=== PATIENT | male | born 1950 | race Caucasian/White ===

== ENCOUNTER 2018-05-27 18:18 | Inpatient (IN) | payer MEDICARE, OTHER ==
[2018-05-27] VITALS (19 sets, daily range): BP systolic 113–248; BP diastolic 76–172
[~2018-05-27] VITALS: Ht 175.3 cm; Wt 63.0 kg
--- NOTE | 2018-05-27 18:20 | NUR ---
BIBRA FROM HOME C/O SOB X 10 HOURS, MISSED DIALYSIS TODAY, SPO2 94% IN ROOM AIR, NO SOB NOTED AT THIS TIME. BP ELEVATED.
[2018-05-27] MEDS ORDERED: ALBUTEROL FS 2.5 MG/3 ML VIAL.NEB ONE (19:14)
[2018-05-27] MEDS ORDERED: IPRATROPIUM NEB FS 0.5 MG/2.5 ML AMPUL.NEB ONE (19:14)
--- NOTE | 2018-05-27 19:16 | NUR ---
PIV ON LEFT AC G20, PATIENT ON O2 AT 2LPM VIA NC DUE TO PATIENT'S C/O BREATHING DISCOMFORT. O2 SAT 94% AT THIS TIME. PATIENT APPEARS TO BE RESTLESS AND ANXIOUS.
--- NOTE | 2018-05-27 19:19 | NUR ---
RT AT BEDSIDE FOR HHN TX.
[2018-05-27 19:20] LABS: BASOPHILS # (AUTO) 0.1 /CMM (0.0-0.2); BASOPHILS % (AUTO) 0.9 % (0.0-2.0); EOSINOPHILS % (AUTO) 0.1 % (0.0-6.0); HEMATOCRIT 30 % (39-51); HEMOGLOBIN 9.4 g/dL (13.5-17.5); LYMPHOCYTES # (AUTO) 2.5 /CMM (0.8-4.8); LYMPHOCYTES % (AUTO) 19.6 % (20.0-44.0); MEAN CORPUSCULAR HGB CONC 31 g/dl (31.0-36.0); MEAN CORPUSCULAR VOLUME 87 fL (80-96); MONOCYTES # (AUTO) 0.8 /CMM (0.1-1.30); NEUTROPHILS # (AUTO) 9.4 /CMM (1.8-8.9); NEUTROPHILS % (AUTO) 73.4 % (43.0-81.0); PLATELET COUNT (AUTO) 237 /CMM (150-450); RED BLOOD CELL COUNT(AUTO) 3.42 MIL/uL (4.5-6.0); WHITE BLOOD COUNT (AUTO) 12.9 K/uL (4.3-11.0)
--- NOTE | 2018-05-27 19:26 | NUR ---
PATTERN MOLDER AT BEDSIDE FOR CXR.
[2018-05-27 19:30] LABS: CALCIUM, SERUM 7.8 mg/dL (8.5-10.1); POTASSIUM 4.9 mmol/L (3.5-5.1)
[2018-05-27] MEDS ORDERED: IPRATROPIUM NEB FS 0.5 MG/2.5 ML AMPUL.NEB NEB ONE (19:30)
[2018-05-27] MEDS ORDERED: ALBUTEROL FS 2.5 MG/3 ML VIAL.NEB NEB ONE (19:30)
[2018-05-27 19:31] LABS: CREATININE 7.5 mg/dL (0.6-1.3)
--- NOTE | 2018-05-27 19:32 | NUR ---
PT ANXIOUS, RESTLESS, KEEPS TRYING TO GET OUT OF BED AND REFUSING HHN TX. COMFORT MEASURES DONE, PLACE PT BACK ON HHN TX. ER MADE AWARE.
--- NOTE | 2018-05-27 19:40 | NUR ---
JERRY RIOS AT BEDSIDE TO RE-EVAL PT.
--- NOTE | 2018-05-27 19:44 | NUR ---
REPORT GIVEN TO QUYEN FOR AKILAH.
[2018-05-27 19:45] LABS: ALBUMIN 2.9 g/dL (3.4-5.0); BILIRUBIN,TOTAL 0.4 mg/dL (0.2-1.0)
--- NOTE | 2018-05-27 19:47 | NUR ---
ER AT BEDSIDE TO RE-EVAL PT WITH ORDERS TO PLACE PT ON BIPAP, RT PAGED.
[2018-05-27 19:52] LABS: TOTAL PROTEIN, SERUM 7.7 g/dL (6.4-8.2)
--- NOTE | 2018-05-27 19:54 | NUR ---
RT AT BEDSIDE TO PLACE PT ON BIPAP.
--- NOTE | 2018-05-27 19:56 | NUR ---
BIPAP SETTING 15/5, RATE - 12, FIO2 - 50%. WILL CONTINUE TO MONITOR PT CLOSELY.
--- NOTE | 2018-05-27 20:10 | NUR ---
RT PT PLACED ON BIPAP PER ORDERS WITH NOTED SETTING FOR SOB AND IWB. PT TOLERATING SETTING WELL AND SAYS HE FEEL MUCH BETTER. BIPAP TO RED OUTLET, ALARMS SET AUDIBLE, MARYSOL ROMERO AT HOB. WILL CONTINUE TO MONITOR. Addendum: 05/27/18 at 2012 by CLARISSE BENITEZ RT Amended: Links added.
[2018-05-27] MEDS ORDERED: FUROSEMIDE 40 MG/4 ML VIAL ONE (20:14)
[2018-05-27] MEDS ORDERED: hydrALAZINE HCL IV 20 MG VIAL ONE (20:15)
--- NOTE | 2018-05-27 20:29 | NUR ---
PT TOLERATING CURRENT BIPAP SETTING AT THIS TIME.
[2018-05-27] MEDS ORDERED: FUROSEMIDE 40 MG/4 ML VIAL IV ONE (20:30)
[2018-05-27] MEDS ORDERED: hydrALAZINE HCL IV 20 MG VIAL IV ONE (20:30)
--- NOTE | 2018-05-27 20:30 | NUR ---
REPORT GIVEN TO LISA RUFFIN FOR AKILAH.
--- NOTE | 2018-05-27 20:38 | NUR ---
PT BECAME ANXIOUS, KEEPS TRYING TO TAKE OFF BIPAP MASK. ER MD AT BEDSIDE TO RE-EVAL PT WITH ORDERS RECEIVED. WILL CARRY OUT ORDERS.
[2018-05-27] MEDS ORDERED: LORAZEPAM INJ 2 MG/ML VIAL ONE (20:49)
--- NOTE | 2018-05-27 20:53 | NUR ---
RT AT BEDSIDE FOR ABG.
[2018-05-27] MEDS ORDERED: LORAZEPAM INJ 2 MG/ML VIAL IV ONE (21:00)
--- NOTE | 2018-05-27 21:00 | NUR ---
PT TOLERATING BIPAP AT THIS TIME.
--- NOTE | 2018-05-27 21:13 | NUR ---
RT ABG DRAWN. NO NEW ORDERS PER MD. ABG DID NOT CROSS OVER TO [facility]. ABG RESULTS IN PT CHART. RN AND MD AWARE. Addendum: 05/27/18 at 2115 by CLARISSE BENITEZ RT Amended: Links added.
--- NOTE | 2018-05-27 21:33 | NUR ---
ICU/SENIOR CLINICAL RESEARCH ASSOCIATE RECEIVED PT FROM ER WITH REPORT GIVEN PRIOR TO ADMISSION. PT'S BLOOD PRESSURE IS 249/150'S WITH PT HAVING PERIODS OF ANXIETY. CHARGE NURSE IS CALLING EXCHANGE TO GET ADMISSION ORDERS AND PRN ORDERS. CALL LIGHT WITHIN, PT IS ORT TO ROOM AND CALL LIGHT. HD NURSE TO COME AND DO HD TONIGHT DUE TO 2 DAYS WITH NO HD.
--- NOTE | 2018-05-27 21:40 | NUR ---
ICU/CERTIFIED HISTOLOGIC TECHNICIAN RANDOM BLOOD SUGAR WAS 91.
[2018-05-27] MEDS ORDERED: LORAZEPAM INJ 2 MG/ML VIAL IV STA (21:45)
--- NOTE | 2018-05-27 21:53 | NUR ---
ICU/AIR AND WATER TESTER ATIVAN 1 MG WAS GIVEN, DUE TO PT BEING VERY RESTLESS AND HIGH BP. WILL CONTINUE TO MONITOR THIS PT AND HIS ANXIETY. CALL LIGHT WITHIN REACH.
--- NOTE | 2018-05-27 21:57 | NUR ---
ICU/SPEED READING TEACHER HD NURSE ARRIVED TO DO THE HD WHICH WAS MISSED TODAY. PT USUALLY HAS HD ON MW. FRIDAY HE GOT HD, HOWEVER ON FRIDAY HE ARRIVED,WAS NOT GIVEN DUE TO HIGH BP. HD CENTER SENT PT TO THE ER TO ADDRESS THE HIGH BP WHICH PT WAS ADMITTED.
[2018-05-27] MEDS ORDERED: MAGNESIUM HYDROXIDE 30 ML UDC PO PRN (22:00)
[2018-05-27] MEDS ORDERED: ONDANSETRON HCL/PF 4 MG/2 ML VIAL IVP PRN (22:00)
[2018-05-27] MEDS ORDERED: DEXTROSE 50%-WATER 50 ML DISP.SYRIN IV PRN (22:00)
[2018-05-27] MEDS ORDERED: ZOLPIDEM TARTRATE 5 MG TABLET PO PRN (22:00)
[2018-05-27] MEDS ORDERED: Z GUARD REMEDY 2 OZ OINT TP PRN (22:00)
[2018-05-27] MEDS ORDERED: HEPARIN SODIUM, PORCINE 5000 UNITS/1 ML VIAL SQ SCH (22:00)
[2018-05-27] MEDS ORDERED: NICARDIPINE IN NACL, ISO-OSM 200 ML IV PRN (22:00)
[2018-05-27] MEDS ORDERED: INSULIN REGULAR, HUMAN 100 UNIT/ML 3 ML VIAL SQ PRN (22:00)
[2018-05-27] MEDS ORDERED: ACETAMINOPHEN 325 MG TABLET PO PRN (22:00)
--- NOTE | 2018-05-27 22:00 | NUR ---
ICU/GRAPPLE SKIDDER OPERATOR JOHN JACKSON CAME TO SEE THE PT AND TO WRITE ORDERS. ALL ORDERS ARE NOTED AND CARRIED OUT.
--- NOTE | 2018-05-27 22:10 | NUR ---
ICU/CASEWORKER PROTECTIVE SERVICES PT'S HEART RATE IS ELEVATED AND RHYTHM IS UNUSUAL, ASKED JOHN JACKSON IF OK TO DO A STAT EKG. EKG WAS ORDERED AND CARRIED OUT. JOHN JACKSON GIVEN THE EKG, NO NEW ORDERS GIVEN AT THIS TIME POST EKG
[2018-05-27] MEDS: HYDROCODONE/APAP 5/325MG 1 EACH TABLET PO PRN (23:27)
[2018-05-27] MEDS: BLOOD SUGAR DIAGNOSTIC 1 EACH STRIP IN SCH (23:32)
--- NOTE | 2018-05-27 23:35 | NUR ---
ICU/BRANCH LENDING OFFICER PT COMPLAINED ABOUT LEG AND BACK PAIN. PT WAS GIVEN NORCO 1 TAB FOR THE PAIN WHICH IS RATED AT 7/10. IN ADDITION TO THIS THE MIDNIGHT BLOOD SUGAR WAS DONE WHICH IS 101. THERE IS NO COVERAGE FOR THIS. WILL CONTINUE TO MONITOR THIS PT'S SUGAR ORDERED BY MD AND PAIN TO THE LEGS HD RN SLOWED DOWN THE FLUID THAT IS BEING PULLED OFF.
[2018-05-28] VITALS (71 sets, daily range): BP systolic 112–175; BP diastolic 7–157
--- NOTE | 2018-05-28 03:12 | NUR ---
ICU/CAR CLEANING SUPERVISOR PT'S BLOOD PRESSURE IS SLOWLY COMING UP FROM POST HD WHEN THE BP HAD FALLEN TO 120'S TO 130'S. CALLED BIAS CUTTER JOHN JACKSON FOR PRN ORDERS. WILL CONTINUE TO MONITOR THIS PT.
[2018-05-28] MEDS: hydrALAZINE HCL IV 20 MG VIAL IV PRN ×2 (03:35→12:46)
--- NOTE | 2018-05-28 03:43 | NUR ---
ICU/WINDOW AIR CONDITIONER INSTALLER PT'S BLOOD PRESSURE HAD REACHED 174/116 WITH NO PRN, PRN ORDER WAS RECEIVED FOR APRESOLINE 10MG IVP FOR SBP GREATER THAN 160. THIS WAS GIVEN, WILL CONTINUE TO MONITOR PT'S BP. CALL LIGHT WITHIN REACH, NO ACUTE DISTRESS SEEN.
[2018-05-28] MEDS: BLOOD SUGAR DIAGNOSTIC 1 EACH STRIP IN SCH ×2 (05:55→11:22)
--- NOTE | 2018-05-28 06:31 | NUR ---
ICU/FOUNDRY PROCESS ENGINEER AM LABS WERE DONE, AM ACCU CHECK WAS DONE WHICH WAS 82. THIS WAS NOT COVERED. AWAIT FOR ANY ABNORMAL LABS.
[2018-05-28 06:49] LABS: CALCIUM, SERUM 8.1 mg/dL (8.5-10.1); CREATININE 6.2 mg/dL (0.6-1.3); MAGNESIUM 1.9 mg/dL (1.8-2.4); PHOSPHORUS 4.8 mg/dL (2.5-4.9); POTASSIUM 5.2 mmol/L (3.5-5.1)
[2018-05-28 07:30] LABS: BASOPHILS % (AUTO) 0.2 % (0.0-2.0); HEMATOCRIT 25 % (39-51); HEMOGLOBIN 8.1 g/dL (13.5-17.5); LYMPHOCYTES # (AUTO) 1.2 /CMM (0.8-4.8); LYMPHOCYTES % (AUTO) 11.5 % (20.0-44.0); MEAN CORPUSCULAR HGB CONC 32 g/dl (31.0-36.0); MEAN CORPUSCULAR VOLUME 86 fL (80-96); MONOCYTES # (AUTO) 0.7 /CMM (0.1-1.30); MONOCYTES % (AUTO) 6.6 % (2.0-12.0); NEUTROPHILS # (AUTO) 8.7 /CMM (1.8-8.9); NEUTROPHILS % (AUTO) 81.7 % (43.0-81.0); PLATELET COUNT (AUTO) 76 /CMM (150-450); RED BLOOD CELL COUNT(AUTO) 2.94 MIL/uL (4.5-6.0); WHITE BLOOD COUNT (AUTO) 10.7 K/uL (4.3-11.0)
--- NOTE | 2018-05-28 07:31 | NUR ---
PATIENT AWAKE A/OX4. ON BIPAP PER ORDERS AND TOLERATING WELL WITH NO NOTED SOB. RT AT BEDSIDE. PATIENT DENIES ANY COMPLAINTS AT THIS TIME. PRN MEDICATIONS FOR HTN THROUGHOUT THE NIGHT. PATIENT SAFETY, SKIN, ASPIRATION PRECAUTIONS IN PLACE AND WILL MONITOR
--- NOTE | 2018-05-28 07:33 | NUR ---
[facility] FAX # [phone] ATTN SHARI SENT REQUEST FOR MEDICAL RECORDS
--- NOTE | 2018-05-28 07:40 | NUR ---
RT NOTE: LATE ENTRY-ALERT PATIENT PLACED ON OXYGEN AT 4LPM VIA NASAL CANNULA. TOLERATING WELL OFF BIPAP. WILL CONTINUE TO MONITOR.
[2018-05-28 08:25] LABS: LYMPHOCYTES % (MANUAL) 13 % (16-48); MONOCYTES % (MANUAL) 9 % (0-11.0); NEUTROPHILS % (MANUAL) 78 (42-76)
[2018-05-28 08:58] LABS: THYROID STIMULATING HORMONE 5.393 uIU/mL (0.358-3.74)
[2018-05-28] MEDS: CARVEDILOL 3.125 MG TABLET PO SCH ×2 (09:15→20:54)
[2018-05-28] MEDS: ATORVASTATIN 10 MG TABLET PO SCH (09:15)
[2018-05-28 09:52] LABS: ABG BASE EXCESS -1.4 mmol/L; ABG OXYGEN SATURATION 98.2 % (92.0-98.5); ABG PCO2 27.6 mmHg (35.0-45.0); ABG PH 7.503 (7.350-7.450); ABG PO2 151.1 mmHg (75.0-100.0); AaDO2 73.6 mmHg; COHb 0.1 % (0.5-1.5); MetHb 0.8 % (0.0-1.5); O2Hb 97.3 % (94.0-97.0); SITE, ABG Left Radial; VENT MODE, BG NASAL CANNULA
[2018-05-28] MEDS ORDERED: VANCOMYCIN 500 MG in IV D5W 100 ML IV PRN (10:00)
--- NOTE | 2018-05-28 10:00 | NUR ---
DR SNOW AT BEDSIDE FOR EVAL
[2018-05-28] MEDS ORDERED: FEE PK DOSING 1 MIN EA MC ONE (10:02)
[2018-05-28] MEDS ORDERED: ALBUTEROL HALF STRENGTH 1.25 MG/3 ML VIAL.NEB NEB PRN (10:30)
[2018-05-28] MEDS ORDERED: IPRATROPIUM NEB FS 0.5 MG/2.5 ML AMPUL.NEB NEB PRN (10:30)
[2018-05-28] MEDS ORDERED: VANCOMYCIN 1 GM in IV D5W 250 ML IV ONE (11:00)
--- NOTE | 2018-05-28 11:01 | NUR ---
DR BEY AT BEDSIDE. PER MD TY TO DOWNGRADE TO TELE. UPDATED ON AM LABS. PER MD TY TO DC HEPARIN. PATIETN AMBULATED WITH PT WITHOUT OXYGEN AND SATURATED 97% NO SOB.
[2018-05-28] MEDS: PIPERACILLIN /TAZOBACTAM 2.25 G in IV D5W 50 ML IV SCH ×2 (12:09→20:54)
[2018-05-28] MEDS: HYDROCODONE/APAP 5/325MG 1 EACH TABLET PO PRN (14:43)
--- NOTE | 2018-05-28 15:13 | NUR ---
PER OK TO DC SLIDING SCALE AND ACCUCHECKS
--- NOTE | 2018-05-28 16:33 | NUR ---
CHEMISTRY DEPARTMENT CHAIR OPENING NOTES RECEIVED PATIENT IN STABLE CONDITION. IN NO APPARENT DISTRESS. BEDSIDE RAILS ARE UPX2. BED IS LOCKED AND LOWERED. CALL LIGHT IS WITHIN REACH. IV LINE IS INTACT AND PATENT. WILL CONTINUE TO MONITOR PATIENT.
--- NOTE | 2018-05-28 16:34 | NUR ---
CARE ENDORSED TO RN MARYAM FOR AKILAH. PATIENT TX TO ROOM 327-2 TELE
--- NOTE | 2018-05-28 18:41 | NUR ---
BOOK ILLUSTRATOR CLOSING NOTES PATIENT IS IN STABLE CONDITION. IN NO APPARENT DISTRESS. BEDSIDE RAILS ARE UPX2. BED IS LOCKED AND LOWERED. CALL LIGHT IS WITHIN REACH. IV LINE IS INTACT AND PATENT. ALL NEEDS WERE MET. WILL ENDORSE CARE TO TUGBOAT OPERATOR NURSE FOR AKILAH.
--- NOTE | 2018-05-28 20:10 | NUR ---
DISASTER RECOVERY MANAGER NOTE RECEIVED PT IN STABLE CONDITION A&O X4. NO SIGNS OF SOB OR DISTRESS. PT WITH GEOFFREY CATH DRESSING IN TACT WITH NO SIGNS OF BLEEDING NOTED. IV IN R WRIST #20 AND LAC #20 PATENT AND IN TACT.. PT WILL BE RECEIVING DIALYSIS TONIGHT AFTER 2100. SAFETY PRECAUTIONS IN PLACE: BED IN LOW, LOCKED POSITION, UPPER BED RAILS UP, AND CALL LIGHT WITHIN REACH. WILL CONT TO MONITOR.
[2018-05-29 00:30] VITALS: BP 142/86
[2018-05-29] MEDS: PIPERACILLIN /TAZOBACTAM 2.25 G in IV D5W 50 ML IV SCH ×2 (04:33→13:00)
--- NOTE | 2018-05-29 06:34 | NUR ---
INVISIBLE BRACES ORTHODONTIST NOTE PT IN STABLE CONDITION A&O X4. NO SIGNS OF SOB OR DISTRESS. PT WITH GEOFFREY CATH DRESSING IN TACT WITH NO SIGNS OF BLEEDING NOTED. IV IN R WRIST #20 AND LAC #20 PATENT AND IN TACT. SAFETY PRECAUTIONS IN PLACE: BED IN LOW, LOCKED POSITION, UPPER BED RAILS UP, AND CALL LIGHT WITHIN REACH. WILL CONT TO MONITOR AND ENDORSE TO NEXT SHIFT FOR AKILAH.
[2018-05-29 08:00] VITALS: BP 173/93
[2018-05-29 08:12] LABS: BASOPHILS # (AUTO) 0.1 /CMM (0.0-0.2); EOSINOPHILS % (AUTO) 0.5 % (0.0-6.0); HEMATOCRIT 24 % (39-51); HEMOGLOBIN 7.7 g/dL (13.5-17.5); LYMPHOCYTES # (AUTO) 1.8 /CMM (0.8-4.8); LYMPHOCYTES % (AUTO) 20.2 % (20.0-44.0); MEAN CORPUSCULAR HGB CONC 33 g/dl (31.0-36.0); MEAN CORPUSCULAR VOLUME 86 fL (80-96); MONOCYTES # (AUTO) 0.7 /CMM (0.1-1.30); MONOCYTES % (AUTO) 7.9 % (2.0-12.0); NEUTROPHILS # (AUTO) 6.4 /CMM (1.8-8.9); NEUTROPHILS % (AUTO) 70.4 % (43.0-81.0); PLATELET COUNT (AUTO) 76 /CMM (150-450); RED BLOOD CELL COUNT(AUTO) 2.74 MIL/uL (4.5-6.0); WHITE BLOOD COUNT (AUTO) 9.2 K/uL (4.3-11.0)
[2018-05-29 08:35] LABS: ALBUMIN 2.3 g/dL (3.4-5.0); BILIRUBIN,TOTAL 0.5 mg/dL (0.2-1.0); CALCIUM, SERUM 7.6 mg/dL (8.5-10.1); CREATININE 6.4 mg/dL (0.6-1.3); MAGNESIUM 1.8 mg/dL (1.8-2.4); PHOSPHORUS 4.8 mg/dL (2.5-4.9); TOTAL PROTEIN, SERUM 6.1 g/dL (6.4-8.2)
[2018-05-29 08:59] VITALS: BP 173/93
[2018-05-29] MEDS: CARVEDILOL 3.125 MG TABLET PO SCH (08:59)
[2018-05-29] MEDS: ATORVASTATIN 10 MG TABLET PO SCH (09:00)
[2018-05-29 09:08] LABS: LYMPHOCYTES % (MANUAL) 17 % (16-48); MONOCYTES % (MANUAL) 6 % (0-11.0); NEUTROPHILS % (MANUAL) 77 (42-76)
[2018-05-29] MEDS ORDERED: AMLO10TA4 PO (10:16)
[2018-05-29] MEDS ORDERED: FERR325T23 PO (10:16)
[2018-05-29] MEDS ORDERED: ATOR10TA PO (10:16)
[2018-05-29] MEDS ORDERED: CARV3.122 PO (10:16)
[2018-05-29] MEDS ORDERED: EPOETIN ALFA (10,000 UNIT) 10,000 UNIT/ML VIAL IV ONE (12:00)
[2018-05-29] MEDS ORDERED: SOD FERRIC GLUC 125 MG in IV NS 0.9% 100 ML IV SCH (14:00)
--- NOTE | 2018-05-29 14:00 | NUR ---
MS computer typesetter keyliner Note Patient awake, resting in bed. No acute distress noted, SOB or signs/symptoms of chest pain. Alert and oriented x 4; able to verbalize needs accordingly. Respirations even and unlabored on room air. Ambulates with steady gait. Peripheral IV access to the right wrist 20 gauge and left AC 20 gauge removed with catheter tips intact. No redness, swelling or bleeding of the sites noted. Skin warm and dry to touch. Patient refused overall skin assessment and discharge photos; educated about benefits and policy, refusing still. ID band removed. Personal belongings and clothing items accounted for, acknowledged via signature on belongings form. Discharge instructions and Exitcare provided to patient, emphasis on following up with [facility] dialysis outpatient. Patient verbalized understanding of instructions and acknowledged via signature on form. Copies placed in chart. Patient accompanied to lobby of hospital; left via taxi cab.
== END 2018-05-29 14:00 | disposition home or self-care (01) | DRG 280 ==
LOC: ER 18:24 → ICU 21:22 → TELE 05-28 15:57 → MED 05-29 08:54
PROVIDERS: ADMIT Nurse Practitioner Acute Care
PROC: 5A09457 Assistance with Respiratory Ventilation, 24-96 Consecutive Hours, Continuous Positive Airway Pressure (ICD-10-PCS; principal; 2018-05-27)
PROC: 5A1D70Z Performance of Urinary Filtration, Intermittent, Less than 6 Hours Per Day (ICD-10-PCS; 2018-05-27)
PROC: 5A1D70Z Performance of Urinary Filtration, Intermittent, Less than 6 Hours Per Day (ICD-10-PCS; 2018-05-28)
DX: I16.0 Hypertensive urgency (principal); J96.01 Acute respiratory failure with hypoxia; I21.A1 Myocardial infarction type 2; N18.6 End stage renal disease; I50.33 Acute on chronic diastolic (congestive) heart failure; E44.0 Moderate protein-calorie malnutrition; I13.2 Hypertensive heart and chronic kidney disease with heart failure and with stage 5 chronic kidney disease, or end stage renal disease; Z99.2 Dependence on renal dialysis; E83.51 Hypocalcemia; D50.9 Iron deficiency anemia, unspecified; D69.6 Thrombocytopenia, unspecified; E87.5 Hyperkalemia; F17.200 Nicotine dependence, unspecified, uncomplicated; D72.829 Elevated white blood cell count, unspecified; E88.09 Other disorders of plasma-protein metabolism, not elsewhere classified; Z68.20 Body mass index [BMI] 20.0-20.9, adult
CPT/HCPCS: 36415; 36600; 71045-TC; 80048-TC; 80053-TC; 80061-TC; 80076-TC; 82728-TC; 82803-TC; 82962-TC; 83540-TC; 83605-TC; 83735-TC; 83880; 84100-TC; 84439-TC; 84443-TC; 84484-TC; 85025-TC; 85730-TC; 87400; 90935-TC; 93307-TC; 99082-TC; G0378; J0360; J0885; J1644; J1815; J1940; J2060; J2543; J2916; J3370; J7030; J7050; J7060

== ENCOUNTER 2018-12-18 13:16 | Inpatient (IN) | payer MEDICARE, OTHER ==
[~2018-12-18] VITALS: Ht 165.1 cm; Wt 63.5 kg
[~2018-12-18 13:16] MED LIST: AMLO10TA4 PO; ATOR10TA PO; CARV3.122 PO; FERR325T23 PO
--- NOTE | 2018-12-18 13:38 | NUR ---
PT BIB RA FROM HOME FOR HIGH BLOOD PRESSURE, PT AAOX4, NOT IN RESPIRATORY DISTRESS, HOOKED TO MONITOR, KEPT RESTED AND COMFORTABLE, WILL CONTINUE TO MONITOR.
--- NOTE | 2018-12-18 13:40 | NUR ---
PT SEEN AND EXAMINED BY .
--- NOTE | 2018-12-18 13:41 | NUR ---
IV LINE ESTABLISHED, BLOOD DRAWNED AND SENT TO LAB.
[2018-12-18] MEDS ORDERED: ENALAPRILAT INJ (1.25 MG/ML) 1.25 MG/ML VIAL IV ONE (13:52)
[2018-12-18 13:53] LABS: BASOPHILS % (AUTO) 0.4 % (0.0-2.0); HEMATOCRIT 37 % (39-51); HEMOGLOBIN 12.2 g/dL (13.5-17.5); LYMPHOCYTES # (AUTO) 1.1 /CMM (0.8-4.8); LYMPHOCYTES % (AUTO) 14.9 % (20.0-44.0); MEAN CORPUSCULAR HGB CONC 33 g/dl (31.0-36.0); MEAN CORPUSCULAR VOLUME 86 fL (80-96); MONOCYTES # (AUTO) 0.5 /CMM (0.1-1.30); NEUTROPHILS % (AUTO) 78.7 % (43.0-81.0); PLATELET COUNT (AUTO) 231 /CMM (150-450); RED BLOOD CELL COUNT(AUTO) 4.31 MIL/uL (4.5-6.0); WHITE BLOOD COUNT (AUTO) 7.6 K/uL (4.3-11.0)
[2018-12-18] MEDS ORDERED: ENALAPRILAT DIHYD. (2.5MG/ML) 1.25 MG/ML VIAL IV ONE (14:00)
[2018-12-18 14:09] LABS: ALBUMIN 3.4 g/dL (3.4-5.0); BILIRUBIN,DIRECT 0.1 mg/dL (0.0-0.2); BILIRUBIN,TOTAL 0.4 mg/dL (0.2-1.0); CALCIUM, SERUM 8.9 mg/dL (8.5-10.1); POTASSIUM 4.6 mmol/L (3.5-5.1); TOTAL PROTEIN, SERUM 7.9 g/dL (6.4-8.2)
[2018-12-18 14:11] LABS: CREATININE 14.5 mg/dL (0.6-1.3)
[2018-12-18] MEDS ORDERED: CLON0.1T PO (14:19)
[2018-12-18] MEDS ORDERED: HYDR-4077 PO (14:19)
[2018-12-18] MEDS ORDERED: LISI40TA4 PO (14:19)
[2018-12-18] MEDS ORDERED: SEVE800T8 PO (14:19)
--- NOTE | 2018-12-18 14:39 | NUR ---
CALLED FOR [facility] BED, TURNED IN MOVE SHEET
[2018-12-18] MEDS ORDERED: LABETALOL HCL IV 100MG VIAL ONE (14:57)
[2018-12-18] MEDS ORDERED: LABETALOL 20 MG/4 ML VIAL IV ONE (15:00)
--- NOTE | 2018-12-18 16:36 | NUR ---
CALLED FOR BED, TURNED IN MOVE SHEET
--- NOTE | 2018-12-18 17:10 | NUR ---
REPORT GIVEN TO LALY SHEA FOR AKILAH.
[2018-12-18 17:31] VITALS: BP 119/118
--- NOTE | 2018-12-18 17:31 | NUR ---
RN ADMITTING NOTE: RECEIVED PATIENT IN ROOM 119-2 VIA GURNEY FROM ER ACCOMPANIED BY TRANSPORTER AND MONIKA, PATIENT SAFETY COORDINATOR. PATIENT WAS AWAKE, ALERT AND VERBALLY RESPONSIVE. BREATHING EVENLY AND UNLABORED SATURATING 98% IN ROOM AIR. DENIED ANY PAIN. PATIENT WAS TRANSFERRED TO THE BED MADE HIM COMFORTABLE. INTRODUCED SELF. PATIENT WAS CHANGED TO A HOSPITAL GOWN. ATTACHED COUNTY MANAGER AND PATIENT WAS SR HR= 68. COMPLETE BODY ASSESSMENT WAS DONE. NO SKIN ISSUES NOTED. (R) CHEST PERMACATH WAS NOTED WITH DRY DRESSING CLEAN AND DRY. (R) AC 18 G IV SITE NOTED PATENT AND INTACT. AFEBRILE. SKIN WARM TO TOUCH. CALL LIGHT WITHIN REACH. NEEDS ANTICIPATED. CALLED AND PAGED DR. VERAS FOR ADMISSION ORDERS VIA [employer] EXCHANGE AND AWAITING FOR MD ORDERS.
--- NOTE | 2018-12-18 17:45 | NUR ---
RN NOTE: RECEIVED CALL BACK FROM DR. VERAS AND ADMITTING ORDERS WERE PROVIDED. MD WAS INFORMED ABOUT THE PATIENT'S BP OF 196/118 HR= 68 AND PER MD "IT'S OK. I AM AWAITING FOR THE LEAD ADVISOR TO CALL ME BACK IN ORDER TO SCHEDULE THE PATIENT A HEMODIALYSIS TONIGHT." WITH NO NEW ORDER. DINNER TRAY WAS ORDERED FOR THE PATIENT.
[2018-12-18] MEDS ORDERED: HYDROCODONE/APAP 5/325MG 1 EACH TABLET PO PRN (18:00)
[2018-12-18] MEDS ORDERED: MAG HYDROX/AL HYDROX/SIMETH 30 ML UDC PO PRN (18:00)
[2018-12-18] MEDS ORDERED: ACETAMINOPHEN 325 MG TABLET PO PRN (18:00)
[2018-12-18] MEDS ORDERED: MAGNESIUM HYDROXIDE 30 ML UDC PO PRN (18:00)
[2018-12-18] MEDS ORDERED: Z GUARD REMEDY 2 OZ OINT TP PRN (18:00)
[2018-12-18] MEDS ORDERED: ZOLPIDEM TARTRATE 5 MG TABLET PO PRN (18:00)
[2018-12-18] MEDS ORDERED: ONDANSETRON HCL/PF 4 MG/2 ML VIAL IVP PRN (18:00)
--- NOTE | 2018-12-18 18:12 | NUR ---
RN NOTE: HEMODIALYSIS CONSENT WAS SIGNED BY THE PATIENT. FILED ON THE PATIENT'S CHART.
--- NOTE | 2018-12-18 19:38 | NUR ---
RN NOTE: BEDSIDE REPORT WAS GIVEN TO PM SHIFT NURSE FOR CONTINUITY OF CARE. PATIENT ATE 100% OF HIS DINNER MEAL. AWAITING FOR THE HEMODIALYSIS NURSE TO COME TONIGHT AND DO HEMODIALYSIS.
[2018-12-18 20:00] VITALS: BP 189/109
[2018-12-18] MEDS: CLONIDINE HCL 0.1 MG TABLET PO SCH (20:25)
[2018-12-19 04:00] VITALS: BP 210/135
[2018-12-19] MEDS: hydrALAZINE HCL IV 20 MG VIAL IV PRN ×2 (05:35→16:42)
--- NOTE | 2018-12-19 05:59 | NUR ---
RN NOTES AWAKE IN BED WATCHING TV, ALERT AND ORIENTED. VERBALLY ABLE TO COMMUNICATE NEEDS. NO COMPLAINT OF PAIN OR DISCOMFORT. BP NOTED TO BE ELEVATED. DIALYSIS DONE, WITH 1.5 LITERS OUT. NO BLEEDING NOTED. AT 0400, NOTED BP 210/135 WITH 80BPM HR. CALLED MD AND OBTAINED ORDER TO ADMINISTER 10MG OF HYDRALAZINE, AND IF AFTER 30 MINUTES BP IS STILL OVER >180, GIVE ANOTHER DOSE OF 10MG HYDRALAZINE. NOTED AND CARRIED OUT. BP AFTER 30 MINS WAS 190/95. ANOTHER 10MG ADMINISTERED. KEPT CLEAN AND DRY. WILL ENDORSE TO AM SHIFT FOR CONTINUITY OF CARE.
[2018-12-19 07:05] LABS: BASOPHILS % (AUTO) 0.3 % (0.0-2.0); EOSINOPHILS % (AUTO) 0.2 % (0.0-6.0); HEMATOCRIT 32 % (39-51); HEMOGLOBIN 10.8 g/dL (13.5-17.5); LYMPHOCYTES # (AUTO) 1.1 /CMM (0.8-4.8); LYMPHOCYTES % (AUTO) 12.2 % (20.0-44.0); MEAN CORPUSCULAR HGB CONC 34 g/dl (31.0-36.0); MEAN CORPUSCULAR VOLUME 86 fL (80-96); MONOCYTES # (AUTO) 0.6 /CMM (0.1-1.30); MONOCYTES % (AUTO) 6.4 % (2.0-12.0); NEUTROPHILS # (AUTO) 7.3 /CMM (1.8-8.9); NEUTROPHILS % (AUTO) 80.9 % (43.0-81.0); PLATELET COUNT (AUTO) 226 /CMM (150-450)
[2018-12-19 07:13] LABS: CALCIUM, SERUM 8.4 mg/dL (8.5-10.1); MAGNESIUM 1.6 mg/dL (1.8-2.4); PHOSPHORUS 7.6 mg/dL (2.5-4.9); POTASSIUM 4.4 mmol/L (3.5-5.1)
--- NOTE | 2018-12-19 07:20 | NUR ---
RN OPENING NOTE RECEIVED REPORT AT BEDSIDE. PT A/O/X4. ON ROOM AIR SATURATING WELL. NO SIGN OF RESPIRATORY DISTRESS OR SOB NOTED AT THIS TIME. IV RIGHT AC #18 PATENT, INTACT AND FLUSHED WELL. AMBULATORY AND URINAL AT BEDSIDE. SAFETY PRECAUTION IN PLACE. BED AT THE LOWEST POSITION AND LOCKED. CALL LIGHT WITHIN REACH. SIDE RAILS UPX2. WILL CONTINUE TO MONITOR.
[2018-12-19 07:34] LABS: CREATININE 11.1 mg/dL (0.6-1.3)
[2018-12-19] MEDS ORDERED: AMLODIPINE BESYLATE 5 MG TABLET PO SCH (09:00)
[2018-12-19] MEDS: CLONIDINE HCL 0.1 MG TABLET PO SCH ×2 (09:01→21:12)
[2018-12-19] MEDS: LISINOPRIL (20MG) 20 MG TABLET PO SCH (09:02)
[2018-12-19] MEDS: hydrALAZINE HCL 50 MG TABLET PO SCH ×3 (09:03→18:07)
[2018-12-19] MEDS: SEVELAMER CARBONATE 800 MG TABLET PO SCH ×3 (09:04→18:06)
--- NOTE | 2018-12-19 10:30 | NUR ---
MS RN NOTE DR. VERAS AT BEDSIDE AND ORDERED NEUROLOGIST CONSULT FOR LEG WEAKNESS. WILL FOLLOW UP.
[2018-12-19 12:00] VITALS: BP 171/112
--- NOTE | 2018-12-19 13:00 | NUR ---
MS RN NOTE HEMODIALYSIS DONE AND 2L FLUID REMOVED. BP IS HIGH. WILL MEDICATE PT.
--- NOTE | 2018-12-19 14:00 | NUR ---
MS RN NOTE PT EVALV AT BEDSIDE. ACCORDING TO PT PATIENT CA WALK SHORT DISTANCES ON HIS OWN BUT HE WILL NEED ASSISTANCE FOR LONG DISTANCES WALK. PATIENT VERBALIZED UNDERSTANDING. PATIENT WAS EDUCATED TO CALL THE NURSE IF NEEDS TO GET UP THE BED. CALL LIGHT WITHIN THE REACH, SIDE RAILS UPX2, BED AT THE LOWEST AND LOCKED POSITION.
[2018-12-19] MEDS: CLONIDINE HCL 0.1 MG TABLET PO PRN ×2 (16:18→23:58)
--- NOTE | 2018-12-19 16:51 | NUR ---
BRACER NOTE PATIENT HAS EPISODES OF HIGH BP 170-180'S. CHANGED THE STATUS TO TELE. PRN BP MED GIVEN. WILL CONTINUE TO MONITOR.
--- NOTE | 2018-12-19 19:30 | NUR ---
VOLUNTEER COORDINATOR NOTE: RECEIVED PT ON BED AWAKE, ALERT AND ORIENTED X3. NO APPARENT DISTRESS NOTED. DENIES PAIN AND DISCOMFORT AT THIS TIME. ON ROOM AIR, NO SOB NOTED. SATURATING WELL. ON TELE MONITOR SINUS RHYTHM HR 68BPM. IV ON RIGHT ANTECUBITAL #18 INTACT AND PATENT, FLUSHING WELL. KEPT CLEAN, DRY AND COMFORTABLE. CALL LIGHT PLACED WITHIN REACH. SIDE RAILS UP X2. BED ALARM ON. BED LOCKED AND IN LOWEST POSITION. WILL CONTINUE TO MONITOR PT
--- NOTE | 2018-12-19 19:42 | NUR ---
RN CLOSING NOTE PT AT BED, A/OX4. ON ROOM AIR SATURATING WELL. ON TELE MONITOR SR WITH HR 71. NO SIGN OF ACUTE RESPIRATORY DISTRESS OR SOB NOTED. SAFETY PRECAUTION IN PLACE. BED AT THE LOWEST POSITION, LOCKED, SIDE RAILS UPX2. CALL LIGHT WITHIN THE REACH. BED ALARM ON. WILL ENDORSE TO THE BLEACH RANGE OPERATOR NURSE FOR AKILAH.
[2018-12-19 20:00] VITALS: BP 154/92
[2018-12-20] VITALS: BP 164/87
[2018-12-20 04:00] VITALS: BP 157/92
--- NOTE | 2018-12-20 06:39 | NUR ---
DIETARY SERVER NOTE: NO CHANGES NOTED THROUGHOUT THE SHIFT. NO APPARENT DISTRESS NOTED. NO COMPLAINTS OF PAIN OR DISCOMFORT AT THIS TIME. ON ROOM AIR, NO SOB NOTED. IV ON RIGHT ANTECUBITAL #18 INTACT AND PATENT, FLUSHING WELL. ON TELE MONITOR SINUS DIPIKA HR 57BPM. KEPT CLEAN, DRY AND COMFORTABLE. SAFETY AND FALL PRECAUTIONS OBSERVED AND MAINTAINED. WILL ENDORSE TO DAY SHIFT RN FOR CONTINUITY OF CARE.
[2018-12-20 07:03] LABS: BASOPHILS % (AUTO) 0.1 % (0.0-2.0); EOSINOPHILS % (AUTO) 0.3 % (0.0-6.0); HEMATOCRIT 32 % (39-51); HEMOGLOBIN 10.8 g/dL (13.5-17.5); LYMPHOCYTES # (AUTO) 0.9 /CMM (0.8-4.8); LYMPHOCYTES % (AUTO) 10.7 % (20.0-44.0); MEAN CORPUSCULAR HGB CONC 33 g/dl (31.0-36.0); MEAN CORPUSCULAR VOLUME 85 fL (80-96); MONOCYTES # (AUTO) 0.6 /CMM (0.1-1.30); MONOCYTES % (AUTO) 7.9 % (2.0-12.0); NEUTROPHILS # (AUTO) 6.5 /CMM (1.8-8.9); PLATELET COUNT (AUTO) 224 /CMM (150-450); RED BLOOD CELL COUNT(AUTO) 3.79 MIL/uL (4.5-6.0)
[2018-12-20 07:18] LABS: CALCIUM, SERUM 8.3 mg/dL (8.5-10.1); POTASSIUM 4.4 mmol/L (3.5-5.1)
[2018-12-20 07:22] LABS: CREATININE 9.4 mg/dL (0.6-1.3)
--- NOTE | 2018-12-20 07:30 | NUR ---
RN NOTES RECEIVED PATIENT IN BED, A/A/OX4, ABLE TO MAKE NEEDS KNOWN. ON ROOM AIR, BREATHING UNLABORED. SATING FINE, DENIES CHEST PAIN OR ANY KIND OF PAIN. SINUS RHYTHM ON THE MONITOR WITH HR ON THE 60S. IV LINE ON THE R AC. IN PLACE AND INTACT: SL. NO SIGNS OF INFECTION NOTED. PATIENT ENCOURAGE TO CALL FOR HELP/ ASSISTANCE, CALL LIGHT PLACED WITHIN REACH, SAFETY MEASURES OBSERVED AND MAINTAINED, BED LOW AND LOCKED POSITION. WILL CONTINUE TO MONITOR PATIENT AND ANTICIPATE NEEDS
[2018-12-20 08:00] VITALS: BP 156/99
--- NOTE | 2018-12-20 08:44 | NUR ---
RN NOTES SEEN AND EXAMINED BY Elliott ARENAS NP.
[2018-12-20] MEDS: hydrALAZINE HCL 50 MG TABLET PO SCH ×2 (09:00→12:08)
[2018-12-20] MEDS ORDERED: AMLODIPINE BESYLATE 5 MG TABLET PO SCH (09:00)
--- NOTE | 2018-12-20 09:00 | NUR ---
RN NOTES BLOOD PRESSURE MEDICINE NOT GIVEN DUR TO HR BELOW 60
[2018-12-20] MEDS ORDERED: AMLO5TAB9 PO (09:14)
[2018-12-20] MEDS: SEVELAMER CARBONATE 800 MG TABLET PO SCH ×2 (09:26→12:08)
[2018-12-20] MEDS: CLONIDINE HCL 0.1 MG TABLET PO SCH (09:32)
[2018-12-20] MEDS: LISINOPRIL (20MG) 20 MG TABLET PO SCH (09:34)
--- NOTE | 2018-12-20 10:30 | NUR ---
RN NOTES SEEN AND EXAMINED BY DR. VERAS WITH ORDERS FOR DISCHARGE. ORDER NOTED AND CARRIED OUT
[2018-12-20 12:08] VITALS: BP 149/99
--- NOTE | 2018-12-20 13:00 | NUR ---
RN NOTES BLOOD PRESSURE MEDICINE NOT GIVEN DUR TO HR BELOW 60
--- NOTE | 2018-12-20 15:15 | NUR ---
RN NOTES PATIENT DISCHARGE, ALL QUESTIONS AND CONCERNS ADDRESSED APPROPRIATELY. ALL MEDICATION AND DISCHARGE INSTRUCTIONS GIVEN TO THE PATIENT. VACCINES REFUSED BY THE PATIENT WHEN OFFERED. SKIN IS INTACT. ALL BELONGINGS AND VALUABLES ACCOUNTED FOR AND RETURNED TO THE PATIENT, CLOTHES WORN ON DISCHARGE. IV ACCESS AND ID BAND REMOVED. PATIENT WHEELED OUT OF THE UNIT ACCOMPANIED BY VANDA HOLT
== END 2018-12-20 15:15 | disposition home or self-care (01) | DRG 640 ==
LOC: ER 13:17 → TELE-TD 17:00 → MEDSG1 19:12 → TELE1 12-19 16:34 → MEDSG1 12-20 09:15
PROVIDERS: ADMIT Family Medicine; ATTEND Family Medicine
PROC: 5A1D70Z Performance of Urinary Filtration, Intermittent, Less than 6 Hours Per Day (ICD-10-PCS; principal; 2018-12-18)
PROC: 5A1D70Z Performance of Urinary Filtration, Intermittent, Less than 6 Hours Per Day (ICD-10-PCS; 2018-12-19)
DX: E87.70 Fluid overload, unspecified (principal); N18.6 End stage renal disease; I13.2 Hypertensive heart and chronic kidney disease with heart failure and with stage 5 chronic kidney disease, or end stage renal disease; I50.22 Chronic systolic (congestive) heart failure; Z99.2 Dependence on renal dialysis; I25.2 Old myocardial infarction; Z87.01 Personal history of pneumonia (recurrent); D63.1 Anemia in chronic kidney disease; M79.606 Pain in leg, unspecified; I73.9 Peripheral vascular disease, unspecified
CPT/HCPCS: 36415; 71045-TC; 80048-TC; 80061-TC; 80076-TC; 83735-TC; 84100-TC; 84484-TC; 85025-TC; 86706; 87081-TC; 87340; 90935-TC; 97116-TC; 97530-TC; G0378; J0360; J3490

== ENCOUNTER 2019-01-12 06:32 | Inpatient (IN) | payer MEDICARE, OTHER ==
[~2019-01-12] VITALS: Ht 175.3 cm; Wt 64.0 kg
[~2019-01-12 06:32] MED LIST changes: -AMLO10TA4 PO; +AMLO5TAB9 PO; -ATOR10TA PO; -CARV3.122 PO; +CLON0.1T PO; -FERR325T23 PO; +HYDR-4077 PO; +LISI40TA4 PO; +SEVE800T8 PO
--- NOTE | 2019-01-12 06:35 | NUR ---
TO BED 2 BIB EMS C/O SOB X2 HRS, HIGHBLOOD PRESSURE. LUNG SOUNDS CLEAR BILATERALLY ON AUSCULTATION. PT AAOX4 NO ACUTE DISTRESS NOTED, RESP EVEN AND UNLABORED. PLACE PT ON CARDIAC MONITORING, COTNINUOUS POX. PENDING ER MD BANKS.
--- NOTE | 2019-01-12 06:39 | NUR ---
ER MD AT BEDSIDE TO EVAL PT WITH ORDERS RECEIVED. WILL CARRY OUT ORDERS.
[2019-01-12] MEDS ORDERED: NITROGLYCERIN 0.4 MG/TAB BOTTLE SL STA (06:45)
[2019-01-12] MEDS ORDERED: NITROGLYCERIN PACKET 1 GM PACKET ONE (06:51)
[2019-01-12] MEDS ORDERED: NITROGLYCERIN 0.4 MG/TAB BOTTLE ONE (06:51)
[2019-01-12] MEDS ORDERED: IPRATROPIUM NEB FS 0.5 MG/2.5 ML AMPUL.NEB ONE (06:54)
[2019-01-12] MEDS ORDERED: ALBUTEROL FS 2.5 MG/3 ML VIAL.NEB ONE (06:54)
--- NOTE | 2019-01-12 06:54 | NUR ---
RT AT BEDSIDE TO GIVE HHN TX.
[2019-01-12] MEDS ORDERED: ALBUTEROL FS 2.5 MG/3 ML VIAL.NEB NEB ONE (07:00)
[2019-01-12] MEDS ORDERED: NITROGLYCERIN PACKET 1 GM PACKET TD ONE (07:00)
[2019-01-12 07:05] LABS: BASOPHILS # (AUTO) 0.1 /CMM (0.0-0.2); BASOPHILS % (AUTO) 0.7 % (0.0-2.0); EOSINOPHILS % (AUTO) 0.5 % (0.0-6.0); HEMATOCRIT 39 % (39-51); HEMOGLOBIN 12.9 g/dL (13.5-17.5); LYMPHOCYTES # (AUTO) 0.8 /CMM (0.8-4.8); LYMPHOCYTES % (AUTO) 9.1 % (20.0-44.0); MEAN CORPUSCULAR HGB CONC 33 g/dl (31.0-36.0); MEAN CORPUSCULAR VOLUME 89 fL (80-96); MONOCYTES # (AUTO) 0.5 /CMM (0.1-1.30); MONOCYTES % (AUTO) 5.5 % (2.0-12.0); NEUTROPHILS # (AUTO) 7.5 /CMM (1.8-8.9); NEUTROPHILS % (AUTO) 84.2 % (43.0-81.0); PLATELET COUNT (AUTO) 262 /CMM (150-450); RED BLOOD CELL COUNT(AUTO) 4.38 MIL/uL (4.5-6.0); WHITE BLOOD COUNT (AUTO) 8.9 K/uL (4.3-11.0)
[2019-01-12 07:10] LABS: CALCIUM, SERUM 8.5 mg/dL (8.5-10.1); POTASSIUM 4.9 mmol/L (3.5-5.1)
[2019-01-12 07:22] LABS: ALBUMIN 3.4 g/dL (3.4-5.0); BILIRUBIN,DIRECT 0.2 mg/dL (0.0-0.2); BILIRUBIN,TOTAL 0.5 mg/dL (0.2-1.0); TOTAL PROTEIN, SERUM 7.6 g/dL (6.4-8.2)
--- NOTE | 2019-01-12 07:27 | NUR ---
PATIENT A/OX3, BREATHING EVEN AND UNLABORED, NO SOB NOTED. HOB ELEVATED, RESTING. NO DISTRESS NOTED. BLOOD PRESSURE STILL ELEVATED, RECEIVED ORDER FROM DR. ALMAZAN TO GIVE ANOTHER TABLET OF NITRO SL.
[2019-01-12] MEDS ORDERED: NITROGLYCERIN 0.4 MG/TAB BOTTLE SL ONE (07:30)
[2019-01-12] MEDS ORDERED: hydrALAZINE HCL IV 20 MG VIAL ONE (07:39)
--- NOTE | 2019-01-12 07:45 | NUR ---
PAGED [facility].
[2019-01-12] MEDS ORDERED: hydrALAZINE HCL IV 20 MG VIAL IV ONE (08:00)
--- NOTE | 2019-01-12 08:00 | NUR ---
GOT BED 116-2 PILLAR IS THE RN
[2019-01-12] MEDS ORDERED: CLONIDINE HCL 0.1 MG TABLET ONE (08:11)
[2019-01-12] MEDS ORDERED: HYDR12.5 PO (08:12)
--- NOTE | 2019-01-12 08:19 | NUR ---
CALLED [facility] -- ITS JOSE L
--- NOTE | 2019-01-12 08:19 | NUR ---
REPORT GIVEN TO CAMDEN RUFFIN FOR AKILAH.
--- NOTE | 2019-01-12 08:19 | NUR ---
TELE1/RN REPORT FROM ER REPORT RECEIVED FROM ER NURSE REZA FOR PT TO BE ADMITTED FOR CHF UNDER THE CARE OF Manju GUILLEN AWAITING FOR PT'S ARRIVAL.
[2019-01-12] MEDS ORDERED: CLONIDINE HCL 0.1 MG TABLET PO ONE (08:30)
--- NOTE | 2019-01-12 08:35 | NUR ---
CALLED [facility] AGAIN
--- NOTE | 2019-01-12 08:55 | NUR ---
FOOD TRAY PROVIDED, RENAL DIET
--- NOTE | 2019-01-12 09:13 | NUR ---
PATIENT ACCEPTED BY DR. SNOW. PATIENT TRANSFERRED TO [place] [id number] VIA ACLS PROTOCOL. PATIENT IN STABLE CONDITION. BP IMPROVED.
--- NOTE | 2019-01-12 09:16 | NUR ---
TELE1/RESTORATIVE AIDE TO TELE1 - 119#1 PT ARRIVED VIA GURNEY, PT WALKED TO HIS BED, WITH STEADY GAIT. PT A/O X 4, DENIES ANY SYMPTOMS, ON ROOM AIR SATURATING WELL @ 95%, LUNG SOUNDS CLEAR, NO EDEMA NOTED. ON TELE WITH SINUS RHYTHM, HR 78. IV SITE PATENT WITH NO S/S OF INFECTION, SL. PER PT HE CALLED 911 BECAUSE HIS BLOOD PRESSURE WAS HIGH. PT IS COMFORTABLE, AWAITING FOR ADMITTING ORDERS. ADMISSION PROTOCOLS IN PROGRESS. CL WITHIN REACHED AND SAFETY MAINTAINED. ON GOING MONITORING.
[2019-01-12 09:30] VITALS: BP 177/111
[2019-01-12] MEDS ORDERED: ZOLPIDEM TARTRATE 5 MG TABLET PO PRN (09:30)
[2019-01-12] MEDS ORDERED: MAGNESIUM HYDROXIDE 30 ML UDC PO PRN (09:30)
[2019-01-12] MEDS ORDERED: Z GUARD REMEDY 2 OZ OINT TP PRN (09:30)
[2019-01-12] MEDS ORDERED: ONDANSETRON HCL/PF 4 MG/2 ML VIAL IVP PRN (09:30)
[2019-01-12] MEDS ORDERED: ACETAMINOPHEN 325 MG TABLET PO PRN (09:30)
[2019-01-12] MEDS: LISINOPRIL (10MG) 10 MG TABLET PO SCH (09:30)
--- NOTE | 2019-01-12 10:00 | NUR ---
TELE1/RN CONSENT FOR DIALYSIS CONSENT FOR DIALYSIS TX OBTAINED FROM PT. TX STARTED, SCHEDULED BP HELD AT THIS TIME. BP 193/109, HR 76. ON GOING MONITORING.
[2019-01-12 12:00] VITALS: BP 187/110
--- NOTE | 2019-01-12 12:00 | NUR ---
MS1/SAND CONDITIONER MACHINE TX COMPLETED DIALYSIS TX, REMOVED 3L OF FLUID. PT TOLERATED PROCEDURE. BP REMAINS HIGH. MONITORING CONTINUED.
[2019-01-12] MEDS: hydrALAZINE HCL 50 MG TABLET PO SCH ×2 (12:39→16:52)
[2019-01-12] MEDS: SEVELAMER CARBONATE 800 MG TABLET PO SCH ×2 (12:39→17:27)
--- NOTE | 2019-01-12 15:03 | NUR ---
TELE1/RN REFUSED TELE BOX PT REMOVED TELE BOX, REFUSED TO BE MONITORED. RISKS AND BENEFITS EXPLAINED, PER PT HE DOES NOT NEEDED, VERBALIZED UNDERSTANDING BUT STILL REFUSED. PRIMARY MD TO BE NOTIFIED.
[2019-01-12 16:00] VITALS: BP 180/114
[2019-01-12] MEDS ORDERED: CEFTRIAXONE 1 G in IV D5W 50 ML IV SCH (16:00)
[2019-01-12] MEDS ORDERED: AZITHROMYCIN 250 MG TABLET PO SCH (16:00)
--- NOTE | 2019-01-12 17:00 | NUR ---
MS1/RN PM ROUNDS PM CARE PROVIDED, NO CHANGE OF CONDITION. MONITORING CONTINUED.
--- NOTE | 2019-01-12 18:00 | NUR ---
MS1/RN IV PULLED OUT - AGITATED PT NOTED WALKING DOWN THE UNIT HALLWAY, WHEN ASKED WHO DISCONNECTED HIM FROM THE IV PUMP HE SAID HE PULLED IT OUT HIMSELF BECAUSE IT NEEDS TO BE STOPPED, PT REFUSED PRESSURE DRESSING, NO ACTIVE BLEEDING ON IV SITE. CHARGE NURSE MADE AWARE, NOTIFIED PRIMARY MD. NOTED PT'S DEMEANOR CHANGES ERATICALLY FROM COOPERATIVE, AGITATED FOR NO APPARENT REASON, YELLING, CURSING TO TO STAFF. MADE KNOWN TO CHARGE NURSE.
--- NOTE | 2019-01-12 19:19 | NUR ---
MS1/RN AM SHIFT END NOTES ALL NEEDS MET. PT ENDORSED TO PM NURSE TO CONTINUE CARE. CL WITHIN REACHED AND SAFETY MAINTAINED.
--- NOTE | 2019-01-12 20:10 | NUR ---
RN NOTE RECEIVED PATIENT IN BED. AWAKE/ALERT, ORIENTED X 3, PERIODS OF AGGRESSION NOTED, REFUSED BODY ASSESSMENT, EXPLAINED ALL RISKS AND BENEFITS, STILL REFUSED, PATIENT STATED "NOT YOUR BUSINESS, LEAVE ME ALONE", CHARGE NURSE ALBERT IS AWARE, WILL CONTINUE TO MONITOR PATIENT
[2019-01-12] MEDS: CLONIDINE HCL 0.1 MG TABLET PO SCH (20:58)
--- NOTE | 2019-01-12 22:18 | NUR ---
RN NOTE PATIENT IS ALERT/ORIENTED X 4, WITH REFUSAL BEHAVIOR AND PERIODS OF AGGRESSION, REFUSED IV INSERTION, EXPLAINED ALL RISKS AND BENEFITS STILL REFUSED, PATIENT STATED " LEAVE ME ALONE, LEAVE MY ROOM NOW AND JUST BRING ME EGG SANDWICH"
[2019-01-13 04:00] VITALS: BP 173/108
[2019-01-13] MEDS ORDERED: CLONIDINE HCL 0.1 MG TABLET PO PRN (05:00)
--- NOTE | 2019-01-13 05:00 | NUR ---
RN NOTE BLOOD PRESSURE OF 173/108 NOTED, NOTIFIED DOCTOR ENMA, DOCTOR ENMA GAVE AN ORDER FOR CLONIDINE 0.1MG EVERY 6 HOURS NEEDED FOR SYSTOLIC BLOOD PRESSURE EQUAL OR ABOVE 160, ORDER TRANSCRIBED AND READ BACK
--- NOTE | 2019-01-13 05:33 | NUR ---
RN NOTE PATIENT IS ALERT/ORIENTED X4, DX CHF, AMBULATORY WITH BATHROOM PRIVILEGES, PATIENT REFUSED TOILET HAT TO MEASURE URINE OUTPUT, EXPLAINED ALL RISKS AND BENEFITS, STILL REFUSED
--- NOTE | 2019-01-13 06:26 | NUR ---
RN NOTE RECHECKED BLOOD PRESSURE 159/83
--- NOTE | 2019-01-13 07:45 | NUR ---
RN OPENING NOTES RECEIVED PATIENT RESTING IN BED COMFORTABLY, HE DENIES ANY PAIN OR DISCOMFORT AT THIS TIME. HE IS AO X4, VERBAL, AND AMBULATORY. HE IS ON RA, SATING WELL , NO S/SX OF RESP DISTRESS OR SOB. CRACKLES IN BILATERAL LOWER LUNG RILEY. HE IS ON A RENAL STANDARD DIET. NO EDEMA. SKIN IS INTACT. HE HAS A R UPPER CHEST PERMACATH. HE HAS NO IV ACCESS. SAFETY MEASURES HAVE BEEN IMPLEMENTED, CALL LIGHT IS WITHIN REACH, BED IS IN LOWEST AND LOCKED POSITION, SIDE RAILS UP X2, WILL CONTINUE TO MONITOR FOR ANY CHANGES.
[2019-01-13 08:00] VITALS: BP 161/100
--- NOTE | 2019-01-13 08:26 | NUR ---
PT TO BE TRANSFERRED TO ROOM 205. TRANSFER REPORT GIVEN TO RUY RUFFIN.
[2019-01-13] MEDS: SEVELAMER CARBONATE 800 MG TABLET PO SCH (08:33)
[2019-01-13] MEDS: CLONIDINE HCL 0.1 MG TABLET PO SCH (08:34)
[2019-01-13] MEDS: LISINOPRIL (10MG) 10 MG TABLET PO SCH (08:34)
[2019-01-13] MEDS: hydrALAZINE HCL 50 MG TABLET PO SCH (08:35)
--- NOTE | 2019-01-13 08:45 | NUR ---
PATIENT WAS TRANSFERRED TO 205 VIA WHEEL CHAIR
--- NOTE | 2019-01-13 08:46 | NUR ---
MS RN NOTES PATIENT ARRIVED AT UNIT VIA WHEELCHAIR, REPORT RECEIVED FROM ELIZABETH RUFFIN. PATIENT AWAKE, ALERT AND ORIENTED X 4, VERBALLY RESPONSIVE AND RESPONDS TO VERBAL AND TACTILE STIMULI. NO ACUTE DISTRESS. DENIES ANY PAIN OR DISCOMFORT. NO IV NOTED ON PATIENT. PATIENT ORIENTED TO UNIT, STAFF, PLAN OF CARE AND VERBALIZED UNDERSTANDING. SAFETY PRECAUTIONS IN PLACE. WILL CONTINUE TO MONITOR. BED LOCKED AND IN LOW POSITION. BILATERAL UPPER SIDE RAILS UP AND LOCKED. CALL LIGHT WITHIN EASY REACH
[2019-01-13 09:00] VITALS: BP 167/119
[2019-01-13] MEDS ORDERED: hydrALAZINE HCL 50 MG TABLET PO SCH (09:00)
[2019-01-13] MEDS ORDERED: AMLODIPINE BESYLATE 5 MG TABLET PO SCH (09:00)
--- NOTE | 2019-01-13 09:00 | NUR ---
MS RN NOTES PATIENT WITH NEW ORDER FROM DR DESHPANDE FOR CTA HEART WITH 3D IMAGING. VERIFIED INFORMED CONSENT OBTAINED BY MD FROM PATIENT AND WITNESSED BY LICENSED STAFF. RADIOLOGY AWARE. WILL CONTINUE TO MONITOR
[2019-01-13] MEDS ORDERED: IOHEXOL-350 100 ML VIAL IV ONE (10:13)
[2019-01-13] MEDS ORDERED: CT SWABBABLE VALVE TRANS SET 1 EA INFUS.SET MC ONE (10:13)
[2019-01-13] MEDS ORDERED: IV NS 0.9% 250 ML IV ONE (10:13)
--- NOTE | 2019-01-13 10:30 | NUR ---
MS RN NOTES PATIENT WISHES TO LEAVE HOSPITAL AGAINST MEDICAL ADVICE. RISKS AND BENEFITS EXPLAINED BUT TO NO AVAIL. PATIENT STRONGLY REFUSED TO STAY. AMA FORM SIGNED AND WITNESSED BY STAFF. PLACED CALL TO WEAVER APPRENTICE AND LEFT MESSAGE. PLACED CALL TO KIMBERLEY POWELL NP AND MADE AWARE OF PATIENT DISCHARGE. ALL BELONGINGS COMPLETE, NO REPORT OF MISSING INVENTORY. NO IV ON PATIENT. NAME BANDS REMOVED. PATIENT LEFT UNIT AMBULATORY WITH STEADY GAIT. NO ACUTE DISTRESS. DENIES ANY PAIN OR DISCOMFORT
== END 2019-01-13 10:30 | disposition left against medical advice (07) | DRG 280 ==
LOC: ER 06:33 → TELE1 08:24 → MEDSG1 15:34 → MEDSG2 01-13 08:42
PROVIDERS: ADMIT Nurse Practitioner Acute Care; ATTEND Nurse Practitioner Acute Care
PROC: 5A1D70Z Performance of Urinary Filtration, Intermittent, Less than 6 Hours Per Day (ICD-10-PCS; principal; 2019-01-12)
DX: I13.2 Hypertensive heart and chronic kidney disease with heart failure and with stage 5 chronic kidney disease, or end stage renal disease (principal); N18.6 End stage renal disease; I21.A1 Myocardial infarction type 2; I50.31 Acute diastolic (congestive) heart failure; J15.9 Unspecified bacterial pneumonia; I16.0 Hypertensive urgency; I25.10 Atherosclerotic heart disease of native coronary artery without angina pectoris; Z99.2 Dependence on renal dialysis; Z79.899 Other long term (current) drug therapy; D63.1 Anemia in chronic kidney disease; I25.2 Old myocardial infarction; I27.20 Pulmonary hypertension, unspecified; Z87.01 Personal history of pneumonia (recurrent); Z82.3 Family history of stroke; I34.0 Nonrheumatic mitral (valve) insufficiency
CPT/HCPCS: 36415; 71045-TC; 80048-TC; 80076-TC; 83880; 84484-TC; 85025-TC; 85730-TC; 90935-TC; 93307-TC; G0378; J0360; J0696; J7030; J7040; J7050; J7060; Q9967

== ENCOUNTER 2019-01-16 14:45 | Emergency (ER) | payer MEDICARE, OTHER ==
[~2019-01-16] VITALS: Ht 170.2 cm; Wt 64.4 kg
[~2019-01-16 14:45] MED LIST changes: +HYDR12.5 PO; -LISI40TA4 PO
--- NOTE | 2019-01-16 14:49 | NUR ---
[id number] FROM HOME C/O SOB X 2 HOURS, TO ER BED 6, HOOKED TO SUBHASH, CHANGED TO GOWN, PATIENT NOTED W LFA 20G, PATENT AND FLUSHING. PROVIDED W WARM BLANKET, AWAITING MD BANKS.
--- NOTE | 2019-01-16 14:50 | NUR ---
DR MIRANDA AT BEDSIDE
[2019-01-16] MEDS ORDERED: IPRATROPIUM NEB FS 0.5 MG/2.5 ML AMPUL.NEB NEB ONE (15:00)
[2019-01-16] MEDS ORDERED: ALBUTEROL FS 2.5 MG/3 ML VIAL.NEB NEB ONE (15:00)
[2019-01-16] MEDS ORDERED: IPRATROPIUM NEB FS 0.5 MG/2.5 ML AMPUL.NEB ONE (15:05)
[2019-01-16] MEDS ORDERED: ALBUTEROL FS 2.5 MG/3 ML VIAL.NEB ONE (15:05)
--- NOTE | 2019-01-16 15:09 | NUR ---
RT AT BEDSIDE, PATIENT STARTED W BREATHING TX
[2019-01-16 15:11] LABS: BASOPHILS % (AUTO) 0.6 % (0.0-2.0); EOSINOPHILS % (AUTO) 0.1 % (0.0-6.0); HEMATOCRIT 34 % (39-51); LYMPHOCYTES # (AUTO) 0.9 /CMM (0.8-4.8); LYMPHOCYTES % (AUTO) 11.3 % (20.0-44.0); MEAN CORPUSCULAR HGB CONC 33 g/dl (31.0-36.0); MEAN CORPUSCULAR VOLUME 90 fL (80-96); MONOCYTES # (AUTO) 0.6 /CMM (0.1-1.30); MONOCYTES % (AUTO) 7.8 % (2.0-12.0); NEUTROPHILS # (AUTO) 6.5 /CMM (1.8-8.9); NEUTROPHILS % (AUTO) 80.2 % (43.0-81.0); PLATELET COUNT (AUTO) 216 /CMM (150-450); RED BLOOD CELL COUNT(AUTO) 3.76 MIL/uL (4.5-6.0); WHITE BLOOD COUNT (AUTO) 8.2 K/uL (4.3-11.0)
--- NOTE | 2019-01-16 15:41 | NUR ---
TELE BED 310-1 GIVEN
[2019-01-16 15:44] LABS: CALCIUM, SERUM 8.6 mg/dL (8.5-10.1); POTASSIUM 4.6 mmol/L (3.5-5.1)
[2019-01-16 15:45] LABS: CREATININE 13.5 mg/dL (0.6-1.3)
[2019-01-16 15:57] LABS: ALBUMIN 2.9 g/dL (3.4-5.0); BILIRUBIN,DIRECT 0.1 mg/dL (0.0-0.2); BILIRUBIN,TOTAL 0.5 mg/dL (0.2-1.0); TOTAL PROTEIN, SERUM 6.7 g/dL (6.4-8.2)
--- NOTE | 2019-01-16 16:01 | NUR ---
CALLED [employer]. 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
--- NOTE | 2019-01-16 16:04 | NUR ---
BP OF 204/123MMHG, MADE DR MIRANDA AWARE.
[2019-01-16 16:10] VITALS: BP 204/123
--- NOTE | 2019-01-16 16:15 | NUR ---
The patient refused further treatment, states 'It is too boring here!" Dr. Davis with the patient to discuss risks of leaving against medical advice. Pt refuses to sign AMA and eloped from ER.
== END 2019-01-16 16:15 | disposition left against medical advice (07) ==
LOC: ER 14:45
DX: J81.1 Chronic pulmonary edema (principal); R06.02 Shortness of breath; I12.0 Hypertensive chronic kidney disease with stage 5 chronic kidney disease or end stage renal disease; N18.6 End stage renal disease; Z99.2 Dependence on renal dialysis; Z60.2 Problems related to living alone; Z79.899 Other long term (current) drug therapy
CPT/HCPCS: 36415; 71045-TC; 80048-TC; 80076-TC; 83880; 84484-TC; 85025-TC; 87081-TC